=== PATIENT | male | born 1985 | race Caucasian/White ===

== ENCOUNTER 2017-04-10 16:27 | Emergency (ER) | payer SELFPAY ==
[~2017-04-10] VITALS: Ht 172.7 cm; Wt 51.2 kg
[2017-04-10 19:00] VITALS: BP 129/84
== END 2017-04-10 19:49 | disposition home or self-care (01) ==
LOC: ED 19:21
DX: J00 Acute nasopharyngitis [common cold] (principal); J31.2 Chronic pharyngitis; J20.8 Acute bronchitis due to other specified organisms
CPT/HCPCS: 36415; 70360; 71020; 85025; 99285

== ENCOUNTER 2017-05-03 16:02 | Emergency (ER) | payer OTHER ==
[~2017-05-03] VITALS: Ht 167.6 cm; Wt 55.0 kg
[2017-05-03 16:32] VITALS: BP 143/91
[2017-05-03] MEDS ORDERED: OXYcodone/APAP 10/325MG TABLET ONE (16:57)
[2017-05-03] MEDS ORDERED: OXYcodone/APAP 10/325MG TABLET PO ONE (17:00)
== END 2017-05-03 17:37 | disposition home or self-care (01) ==
LOC: ED 17:00
DX: S43.004A Unspecified dislocation of right shoulder joint, initial encounter (principal); F17.200 Nicotine dependence, unspecified, uncomplicated; Z88.0 Allergy status to penicillin; W01.0XXA Fall on same level from slipping, tripping and stumbling without subsequent striking against object, initial encounter; Y93.01 Activity, walking, marching and hiking; Y99.8 Other external cause status; Y92.099 Unspecified place in other non-institutional residence as the place of occurrence of the external cause
CPT/HCPCS: 23650